=== PATIENT | female | born 1990 | race Caucasian/White ===

== ENCOUNTER 2019-03-06 18:25 | Emergency (ER) | payer MEDICAID, OTHER ==
--- NOTE | 2019-03-06 18:57 | EDM.PDOC ---
ED HPI GENERAL MEDICAL PROBLEM - General Chief Complaint: Eye Problems Stated Complaint: LEFT EYES SCRATCHED BY DOGS PAW Time Seen by Provider: 03/06/19 18:46 Source of Information: Reports: Patient History Limitations: Reports: No Limitations - History of Present Illness INITIAL COMMENTS - FREE TEXT/NARRATIVE: This 28 yo female patient reports to the ED with swelling and redness to her left lower eyelid. The patient reports she was scratched by her dog 2 days ago and has noticed increased swelling and drainage today. The patient has been using warm packs with little to no symptom relief. Duration: Day(s):, Constant, Getting Worse Location: Reports: Face Quality: Reports: Other Severity: Moderate Improves with: Reports: None Worsens with: Reports: None Context: Reports: Other Associated Symptoms: Reports: No Other Symptoms Left Eye Pain Score (Numeric/FACES): 5 - Related Data Allergies Allergy/AdvReac Type Severity Reaction Status Date / Time No Known Allergies Allergy Verified 03/06/19 18:31 Home Meds: Home Meds . 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 Musculoskeletal History: Reports: None Neurological History: Reports: None Psychiatric History: Reports: None Endocrine/Metabolic History: Reports: None Hematologic History: Reports: None Immunologic History: Reports: None Oncologic (Cancer) History: Reports: None Dermatologic History: Reports: None - Infectious Disease History Infectious Disease History: Reports: None - Past Surgical History Head Surgeries/Procedures: Reports: None Social & Family History - Family History Family Medical History: Noncontributory - Tobacco Use Smoking Status *Q: Current Every Day Smoker Years of Tobacco use: 11 Packs/Tins Daily: 1 - Caffeine Use Caffeine Use: Reports: Coffee, Soda - Recreational Drug Use Recreational Drug Use: No ED ROS GENERAL - Review of Systems Review Of Systems: Comprehensive ROS is negative, except as noted in HPI. ED EXAM GENERAL W FULL EYE - Physical Exam Exam: See Below Exam Limited By: No Limitations General Appearance: Alert, WD/WN, Mild Distress Eye Exam: Left Eye: Periorbital Changes (Left lower eyelid erythema with drainage), Bilateral Eye: EOMI Eyelids: Left: Edema, Erythema Conjunctiva & Sclera: Bilateral: Normal Appearance Cornea Exam: Bilateral: Normal Appearance Extraocular Movements: Bilateral: Intact Pupils: Normal Accommodation Anterior Chamber: Bilateral: Normal Appearance Ears: Normal External Exam, Normal Canal, Hearing Grossly Normal, Normal TMs Nose: Normal Inspection, Normal Mucosa, No Blood Throat/Mouth: Normal Inspection, Normal Lips, Normal Teeth, Normal Gums, Normal Oropharynx, Normal Voice, No Airway Compromise Head: Atraumatic, Normocephalic Neck: Normal Inspection, Supple, Non-Tender, Full Range of Motion Respiratory/Chest: No Respiratory Distress, Lungs Clear, Normal Breath Sounds, No Accessory Muscle Use, Chest Non-Tender Cardiovascular: Normal Peripheral Pulses, Regular Rate, Rhythm, No Edema, No Gallop, No JVD, No Murmur, No Rub GI/Abdominal: Normal Bowel Sounds, Soft, Non-Tender, No Organomegaly, No Distention, No Abnormal Bruit, No Mass (Female) Exam: Deferred Rectal (Female) Exam: Deferred Back Exam: Normal Inspection, Full Range of Motion, NT Extremities: Normal Inspection, Normal Range of Motion, Non-Tender, Normal Capillary Refill, No Pedal Edema Neurological: Alert, Oriented, CN II-XII Intact, Normal Cognition, Normal Gait, Normal Reflexes, No Motor/Sensory Deficits Psychiatric: Normal Affect, Normal Mood Skin Exam: Warm, Dry, Intact, Normal Color, No Rash Lymphatic: No Adenopathy Course - Vital Signs Last Recorded V/S: Last Vital Signs Temp 35.6 C 03/06/19 18:31 Pulse 100 03/06/19 18:31 Resp 18 03/06/19 18:31 BP 125/90 03/06/19 18:31 Pulse Ox 99 03/06/19 18:31 Departure - Departure Time of Disposition: 18:56 Disposition: Home, Self-Care 01 Condition: Fair Clinical Impression: Periorbital cellulitis of left eye - Discharge Information *PRESCRIPTION DRUG MONITORING PROGRAM REVIEWED*: Not Applicable *COPY OF PRESCRIPTION DRUG MONITORING REPORT IN PATIENT JEFFERY: Not Applicable Instructions: Cellulitis, Adult, [id number] Care Plan Goals: The patient was advised of the examination and lab results during the visit. The patient was discharged with a script for Keflex (500 mg) #30 to take 1 by mouth 3 times per day for 10 days. The patient was encouraged to follow-up with his primary care facility. If the patient has any additional symptoms or concerns, the patient should either return to the emergency department or visit her primary care facility. Sepsis Event Note - Evaluation Sepsis Screening Result: No Definite Risk - Focused Exam Vital Signs: Vital Signs Temp Pulse Resp BP Pulse Ox 03/06/19 18:31 35.6 C 100 18 125/90 99 Date Exam was Performed: 03/06/19 Time Exam was Performed: 18:52
== END 2019-03-06 19:04 | disposition home or self-care (01) ==
LOC: DL.ED 18:25
DX: L03.213 Periorbital cellulitis (principal)
CPT/HCPCS: 87070; 87077; 87186; 99283